=== PATIENT | male | born 1990 | race Caucasian/White ===

== ENCOUNTER 2023-03-28 01:14 | Emergency (ER) | payer BC, OTHER ==
[2023-03-28 01:24] VITALS: TEMP 97.7; BMI 26.9
[2023-03-28] MEDS ORDERED: FAMOTIDINE 10 MG/ML VIAL IVPB ONE (01:25)
[2023-03-28] MEDS: LACTATED RINGERS SOLUTION 1000 ML INFUS.BAG IV ONE (01:32)
[2023-03-28] MEDS: FAMOTIDINE 20 MG/50 ML IVPB 20 MG/50 ML MG IVPB ONE (01:32)
[2023-03-28 05:28] VITALS: BP 116/72; PULSE 68; RESP 18
== END 2023-03-28 05:28 | disposition home or self-care (01) ==
LOC: JER 01:14
PROC: 3E033GC Introduction of Other Therapeutic Substance into Peripheral Vein, Percutaneous Approach (ICD-10-PCS; principal; 2023-03-28)
DX: T78.2XXA Anaphylactic shock, unspecified, initial encounter (principal); R22.0 Localized swelling, mass and lump, head
CPT/HCPCS: 99284-25

== ENCOUNTER 2023-11-14 16:46 | Emergency (ER) | payer BC, OTHER ==
[2023-11-14 16:57] VITALS: BP 125/76; PULSE 96; RESP 18; TEMP 97.9; BMI 29.1
[2023-11-14] MEDS ORDERED: DEXAMETHASONE SOD PHOSPHATE 10 MG/1 ML VIAL ONE (18:27)
[2023-11-14] MEDS ORDERED: FAMOTIDINE 20 MG/50 ML IVPB 20 MG/50 ML MG IVPB ONE (18:27)
[2023-11-14] MEDS: LACTATED RINGERS SOLUTION 1000 ML INFUS.BAG IV ONE (18:44)
[2023-11-14] MEDS: FAMOTIDINE 20 MG/50 ML IVPB 20 MG/50 ML MG IVPB ONE (18:44)
[2023-11-14] MEDS: DEXAMETHASONE SOD PHOSPHATE 10 MG/1 ML VIAL IVPUSH ONE (18:44)
== END 2023-11-14 21:05 | disposition home or self-care (01) ==
LOC: JER 16:46
DX: T78.40XA Allergy, unspecified, initial encounter (principal); R09.81 Nasal congestion; R06.00 Dyspnea, unspecified; H02.403 Unspecified ptosis of bilateral eyelids
CPT/HCPCS: 99284-25; J1100